=== PATIENT | female | born 2005 | race Two or more races ===

== ENCOUNTER 2025-06-09 12:05 | Observation (INO) | payer MEDICAID ==
[~2025-06-09] VITALS: Ht 152.4 cm; Wt 89.8 kg
--- NOTE | 2025-06-09 12:50 | DVH ---
BIOPHYSICAL PROFILE HISTORY: SGA TECHNIQUE: Multiple transabdominal real-time grayscale sonographic images through the gravid uterus of the fetus with duplex Doppler color flow and M-mode spectral analysis FINDINGS: BIOPHYSICAL PROFILE: breathing score: 2/2 movement score: 2/2 tone score: 2/2 Quantitative BREANA score: 2/2 (BREANA: 13.1 Cm.) Total score: 8/8 The cervix closed Single live fetus in cephalic presentation. heart rate 139 beats per minute. Posterior fundal placenta without previa or abruption IMPRESSION: 1. Biophysical profile score: 8/8
[2025-06-09] MEDS ORDERED: PREN-96 PO (13:05)
--- NOTE | 2025-06-10 15:30 | DVHDS2 ---
Physician Discharge Progress N Final Diagnosis: SGA 37WKS Operations or Procedures: Operations or Procedures NST REACTIVE REVIWED,SONO Condition on Discharge: Good Disposition: Home Discharge Instructions: Diet: Regular Activity: No Restrictions, As Tolerated Medications: NA Follow Up Care: Specialist: 1W Discharge Statement: "Patient was advised to return to the ER or call 911 if any headaches, dizziness, shortness of breath, chest pain, abdominal pain, bleeding, fevers, or worsening of medical condition. Patient was counseled about treatment plan, medications, possible side effects, patientverbalized understanding. All questions were answered to the best of my ability. This discharge took greater then 30 minutes in planning, reviewing documentat ion, counseling the patient, and discussing with other team members." Visit Coding OBGYN Date of Service: Jun 09, 2025 Billing Provider: ROSE RIVAS DO CONTROL AND RECOVERY SPECIAL TACTICS Common Visit Codes: [id number] OBS CARE (HIGH) CONTROL AND RECOVERY SPECIAL TACTICS Procedure Codes: 06625-09- NON-STRESS TEST ROSE RIVAS DO Jun 10, 2025 15:30
== END 2025-06-09 13:34 | disposition home or self-care (01) ==
LOC: LDRP 12:05
PROVIDERS: ADMIT Obstetrics & Gynecology; ATTEND Obstetrics & Gynecology
DX: O36.5930 Maternal care for other known or suspected poor fetal growth, third trimester, not applicable or unspecified (principal); Z3A.37 37 weeks gestation of pregnancy; Z79.899 Other long term (current) drug therapy; Z98.890 Other specified postprocedural states
CPT/HCPCS: 59025; 76819; 81002; 94760; G0378

== ENCOUNTER 2025-06-10 01:27 | Observation (INO) | payer MEDICAID ==
[~2025-06-10] VITALS: Ht 152.4 cm; Wt 89.8 kg
[~2025-06-10 01:27] MED LIST: PREN-96 PO
[2025-06-10] MEDS ORDERED: LACTATED RINGER'S 1,000 ML IV ONE (02:30)
[2025-06-10 03:54] LABS: Vaginal Trichomonas Not Present
[2025-06-10 03:55] LABS: Vaginal Bacteria Moderate; Vaginal Clue Cells Many; Vaginal Epithelial Cells Moderate
--- NOTE | 2025-06-10 03:58 | DVHDS2 ---
Physician Discharge Progress N Final Diagnosis: Not in labor Secondary Diagnosis: No care Operations or Procedures: Operations or Procedures SUBJECTIVE Keyla Beltran is a 20 yo with limited care and uncertain dating presenting for vaginal spotting. Patient states that at 0000, she went to the bathroom and had a couple spots of blood when she wiped. 30 minutes later when she went to the bathroom again, she had a couple more spots when she wiped. No blood in underwear. Denies feeling contractions, denies leaking fluid, and endorses positive movement. Denies headache, blurry vision, or epigastric pain PNC: LMP: 09/03/24 (EDC: 06/10/25) [facility] period and they "sent her away" stating it was too soon. She returned 4 weeks later and they conducted an US, citing her EDC as 07/04/25. She then began seeking care in [place], [place] and got an US done "a couple weeks later" that showed an EDC of 06/27/25 and current GA of 13 weeks. At the end of May, she began receiving care with Dr Byrne and V[facility] and got a "34 week US" which placed her EDC at 07/12/25 Review of Systems: Neuro: No complaints Heart: No complaints Lungs: No complaints GI: No complaints : Denies dysuria, abnormal vaginal discharge, itching, pain, or change in odor. States she had episodes of spotting as described above Skin: No complaints Extremities: No complaints OBJECTIVE VSS FHR: Baseline: 135 Variability: Moderate Accelerations: Present Decelerations: Absent Category: 1 UCs: occasional. Patient not feeling them and palpating mild Neuro: A&O x4. No apparent distress. Affect appropriate Heart: Regular rate and rhythm Lungs: Clear bilaterally GI: Gravid. No tenderness : SSE discussed and performed with consent. Cervix closed. No bleeding noted in vagina or at os. Copious amounts of white, frothy discharge noted. Skin: Dry and intact. No rashes or lesions Extremities: Cap refill WNL. Mild edema bilat ankles. ASSESSMENT 20 yo with IUP likely at 36w4d (based on early US with EDC 07/04/25) Not in labor Category 1 Tracing Limited care PLAN -PO hydrated patient -Continue with appointments as scheduled. NST on Wednesday 06/13 and appt with Jazminnd on 06/15 -Vaginitis collected. Will discuss results with patient on 06/13 or sooner if indicated -GC/CT in urine sent to lab. Will discuss results with patient on 06/13 or sooner if indicated -Discussed labor precautions and kick counts. Answered all patient questions and concerns. Patient verbalizes understanding. Condition on Discharge: Good Disposition: Home Discharge Instructions: Diet: Regular Activity: No Restrictions, As Tolerated Medications: No change at this time. See med list Follow Up Care: Specialist: Follow-up as previously scheduled on Wednesday 06/13 Discharge Statement: "Patient was advised to return to the ER or call 911 if any headaches, dizziness, shortness of breath, chest pain, abdominal pain, bleeding, fevers, or worsening of medical condition. Patient was counseled about treatment plan, medications, possible side effects, patientverbalized understanding. All questions were answered to the best of my ability. This discharge took greater then 30 minutes in planning, reviewing documentation, counseling the patient, and discussing with other team members." Visit Coding OBGYN Date of Service: Jun 10, 2025 Billing Provider: KAYLIN CARDENAS CNM WELFARE VISITOR Common Visit Codes: [id number] INP/OBS CARE (HIGH) WELFARE VISITOR Procedure Codes: 40534-00- NON-STRESS TEST KAYLIN CARDENAS CNM Jun 10, 2025 03:58
[2025-06-12 05:07] LABS: Chlamydia Trachomatis, NAA Negative (Negative); Neisseria gonorrhoeae, NAA Negative (Negative)
== END 2025-06-10 03:49 | disposition home or self-care (01) ==
LOC: LDRP 01:27
PROVIDERS: ADMIT Obstetrics & Gynecology; ATTEND Obstetrics & Gynecology
DX: O09.33 Supervision of pregnancy with insufficient antenatal care, third trimester (principal); O26.853 Spotting complicating pregnancy, third trimester; Z3A.36 36 weeks gestation of pregnancy; Z79.899 Other long term (current) drug therapy
CPT/HCPCS: 59025; 81002; 87210; 87491; 87591; 94760; G0378

== ENCOUNTER 2025-06-13 07:45 | Observation (INO) | payer MEDICAID ==
--- NOTE | 2025-06-13 13:27 | DVH ---
BIOPHYSICAL PROFILE HISTORY: SGA TECHNIQUE: Multiple transabdominal real-time grayscale sonographic images through the gravid uterus of the fetus with duplex Doppler color flow and M-mode spectral analysis FINDINGS: BIOPHYSICAL PROFILE: breathing score: 2/2 movement score: 2/2 tone score: 2/2 Quantitative BREANA score: 2/2 (BREANA: 12 Cm.) Total score: 8/8 The cervix close Single live fetus in cephalic presentation. heart rate 134 beats per minute. Posterior fundal placenta without previa or abruption IMPRESSION: 1. Biophysical profile score: 8/8
[2025-06-13] MEDS ORDERED: METR-344 PO (13:42)
--- NOTE | 2025-06-13 15:12 | DVHDS2 ---
Physician Discharge Progress N Final Diagnosis: SGA ,LATE ENTRY 37WKS Operations or Procedures: Operations or Procedures NST REACTIVE REVIWED,SONO Condition on Discharge: Good Disposition: Home Discharge Instructions: Diet: Regular Activity: No Restrictions, As Tolerated Medications: NA Follow Up Care: Specialist: 1W Discharge Statement: "Patient was advised to return to the ER or call 911 if any headaches, dizziness, shortness of breath, chest pain, abdominal pain, bleeding, fevers, or worsening of medical condition. Patient was counseled about treatment plan, medications, possible side effects, patientverbalized understanding. All questions were answered to the best of my ability. This discharge took greater then 30 minutes in planning, reviewing documentation, counseling the patient, and discussing with other team members." Visit Coding OBGYN Date of Service: Jun 13, 2025 Billing Provider: ROSE RIVAS DO MANAGER OF ENVIRONMENTAL SERVICES Common Visit Codes: [id number] INP/OBS CARE (HIGH) MANAGER OF ENVIRONMENTAL SERVICES Procedure Codes: 34549-26- NON-STRESS TEST ROSE RIVAS DO Jun 13, 2025 15:12
== END 2025-06-13 13:52 | disposition home or self-care (01) ==
LOC: LDRP 12:13 → UNDOADMOB 12:13 → LDRP 12:20 → UNDODISOB 13:52
PROVIDERS: ADMIT Obstetrics & Gynecology; ATTEND Obstetrics & Gynecology
DX: O36.5930 Maternal care for other known or suspected poor fetal growth, third trimester, not applicable or unspecified (principal); Z3A.37 37 weeks gestation of pregnancy; Z98.890 Other specified postprocedural states; Z79.899 Other long term (current) drug therapy
CPT/HCPCS: 59025; 76819; 81002; 94760; G0378

== ENCOUNTER 2025-06-15 06:38 | Observation (INO) | payer MEDICAID ==
[~2025-06-15 06:38] MED LIST changes: +METR-344 PO
--- NOTE | 2025-06-20 13:46 | DVH ---
BIOPHYSICAL PROFILE HISTORY: SGA TECHNIQUE: Multiple transabdominal real-time grayscale sonographic images through the gravid uterus of the fetus with duplex Doppler color flow and M-mode spectral analysis FINDINGS: BIOPHYSICAL PROFILE: breathing score: 2 movement score: 2 tone score: 2 Quantitative BREANA score: 2 (BREANA: 14.3 Cm.) Total score: 8 The cervix was not seen Single live fetus in cephalic presentation. heart rate 136 beats per minute. Grade II posterior fundal placenta without previa or abruption IMPRESSION: Biophysical profile score: 8/8
--- NOTE | 2025-06-20 16:22 | DVHDS2 ---
Physician Discharge Progress N Final Diagnosis: Suspected SGA (poor growth) Operations or Procedures: Operations or Procedures NST/BPP BREANA Commentary: Commentary PATIENT: ANGELA PATRICIO ACCT: [id number] UNIT: [id number] : 2005 LOC: [facility] ROOM / BED: TRIAGE1 / A AGE / SEX: 20 / F ADM STATUS: ADM IN SERVICE 1304 ORDERING PHYSICIAN: PATY BUSH DO PROCEDURE(s): BPP - BIOPHYSICAL PROFILE REASON: SGA ORDER NUMBER(s): [id number], ACCESSION NUMBER(s): [id number] BIOPHYSICAL PROFILE HISTORY: SGA TECHNIQUE: Multiple transabdominal real-time grayscale sonographic images through the gravid uterus of the fetus with duplex Doppler color flow and M-mode spectral analysis FINDINGS: BIOPHYSICAL PROFILE: breathing score: 2 movement score: 2 tone score: 2 Quantitative BREANA score: 2 (BREANA: 14.3 Cm.) Total score: 8 The cervix was not seen Single live fetus in cephalic presentation. heart rate 136 beats per minute. Grade II posterior fundal placenta without previa or abruption IMPRESSION: Biophysical profile score: 8/8 ATED BY: CLAUDIO LOWE MD DICTATED DATE/TIME: 06/20/25 1344 Condition on Discharge: Stable Disposition: Home Discharge Instructions: Diet: Regular Activity: No Restrictions, As Tolerated Follow Up/Referral: as scheduled per Dr yBrne Medications: NA Follow Up Care: Discharge Statement: "Patient was advised to return to the ER or call 911 if any headaches, dizziness, shortness of breath, chest pain, abdominal pain, bleeding, fevers, or worsening of medical condition. Patient was counseled about treatment plan, medications, possible side effects, patientverbalized understanding. All questions were answered to the best of my ability. This discharge took greater then 30 minutes in planning, reviewing documentation, counseling the patient, and discussing with other team members." Visit Coding OBGYN Date of Service: Jun 20, 2025 Billing Provider: PATY BUSH DO REMELTER Common Visit Codes: 77436-ARJ/OBS SAME DATE (HIGH) PATY BUSH DO Jun 20, 2025 16:22
== END 2025-06-20 14:05 | disposition home or self-care (01) ==
LOC: LDRP 06-20 12:47
PROVIDERS: ADMIT Obstetrics & Gynecology; ATTEND Obstetrics & Gynecology
DX: O36.5930 Maternal care for other known or suspected poor fetal growth, third trimester, not applicable or unspecified (principal); Z3A.39 39 weeks gestation of pregnancy; Z79.899 Other long term (current) drug therapy
CPT/HCPCS: 59025; 76819; 81002; G0378

== ENCOUNTER 2025-06-22 22:27 | Observation (INO) | payer MEDICAID ==
[~2025-06-22] VITALS: Ht 152.4 cm; Wt 91.6 kg
--- NOTE | 2025-06-23 00:13 | DVHDS2 ---
Physician Discharge Progress N Final Diagnosis: well being established spotting, resolved Operations or Procedures: Operations or Procedures S: 20yo IUP@39.2wks (final MICHELLE 06/27/25 based on 13 wk sono per pt). Pt c/o spotting when she wipes. Denies sexual intercourse in the last 48 hours. +FM, denies UCs/LOF/MOSHER/vision changes/RUQ pain. Late entry to PNC with Dr. Byrne. O: VSS NST reactive prior to D/C BPP 06/10 SVE: FT/TH/HI, no VB noted by CNM A: 20yo IUP@39.2wks well being established spotting, resolved D: D/C home FKC/PreE/labor precautions reviewed Condition on Discharge: Stable Disposition: Home Discharge Instructions: Diet: Regular Activity: No Restrictions, As Tolerated Medications: see med list Follow Up Care: Specialist: f/u as scheduled for IOL on 06/26/25 Discharge Statement: "Patient was advised to return to the ER or call 911 if any headaches, dizziness, shortness of breath, chest pain, abdominal pain, bleeding, fevers, or worsening of medical condition. Patient was counseled about treatment plan, medications, possible side effects, patientverbalized understanding. All questions were answered to the best of my ability. This discharge took greater then 30 minutes in planning, reviewing documentation, counseling the patient, and discussing with other team members." Visit Coding OBGYN Date of Service: Jun 23, 2025 Billing Provider: AB GAMING CNM IMPORT CUSTOMS CLEARING AGENT Common Visit Codes: [id number] OBS CARE (HIGH) IMPORT CUSTOMS CLEARING AGENT Procedure Codes: 46591-36- NON-STRESS TEST AB GAMING CNM Jun 23, 2025 00:13
--- NOTE | 2025-06-23 01:17 | DVH ---
BIOPHYSICAL PROFILE HISTORY: Nonreactive NST TECHNIQUE: Multiple transabdominal real-time grayscale sonographic images through the gravid uterus of the fetus with duplex Doppler color flow and M-mode spectral analysis FINDINGS: BIOPHYSICAL PROFILE: 8/8 heart rate of 159 beats per minute. position is vertex. BREANA of 11.8 cm. Placenta is po sterior position. No placenta previa or abruptio is noted. Cervical length is 4.1 cm. IMPRESSION: 1. Biophysical profile score: 8/8
[2025-06-28] MEDS ORDERED: FERR30CA PO (19:41)
[2025-06-28] MEDS ORDERED: DOCU-265 PO (19:41)
[2025-06-28] MEDS ORDERED: PREN-96 PO (19:41)
[2025-06-28] MEDS ORDERED: IBU600T PO (19:41)
== END 2025-06-23 01:01 | disposition home or self-care (01) ==
LOC: LDRP 22:27
PROVIDERS: ADMIT Obstetrics & Gynecology; ATTEND Obstetrics & Gynecology
DX: O26.853 Spotting complicating pregnancy, third trimester (principal); Z3A.39 39 weeks gestation of pregnancy; Z79.899 Other long term (current) drug therapy; Z98.890 Other specified postprocedural states
CPT/HCPCS: 59025; 76819; 81002; 94760; G0378

== ENCOUNTER 2025-06-24 13:40 | Observation (INO) | payer MEDICAID ==
--- NOTE | 2025-06-25 08:46 | DVHDS2 ---
Physician Discharge Progress N Final Diagnosis: abd paoin 39wks Operations or Procedures: Operations or Procedures nst reactive reviwed,sono Condition on Discharge: Good Disposition: Home Discharge Instructions: Diet: Regular Activity: Bed rest Medications: na Follow Up Care: Specialist: 2d Discharge Statement: "Patient was advised to return to the ER or call 911 if any headaches, dizziness, shortness of breath, chest pain, abdominal pain, bleeding, fevers, or worsening of medical condition. Patient was counseled about treatment plan, medications, possible side effects, patientverbalized understanding. All questions were answered to the best of my ability. This discharge took greater then 30 minutes in planning, reviewing documentation, counseling the patient, and discussing with other team members." Visit Coding OBGYN Date of Service: Jun 24, 2025 Billing Provider: ROSE RIVAS DO BIN TRIPPER OPERATOR Common Visit Codes: [id number] OBS CARE (HIGH) BIN TRIPPER OPERATOR Procedure Codes: 57192-51- NON-STRESS TEST ROSE RIVAS DO Jun 25, 2025 08:46
== END 2025-06-24 15:48 | disposition home or self-care (01) ==
LOC: LDRP 13:40
PROVIDERS: ADMIT Obstetrics & Gynecology; ATTEND Obstetrics & Gynecology
DX: O26.893 Other specified pregnancy related conditions, third trimester (principal); R10.9 Unspecified abdominal pain; Z3A.39 39 weeks gestation of pregnancy

== ENCOUNTER 2025-06-26 14:06 | Inpatient (IN) | payer MEDICAID ==
[~2025-06-26] VITALS: Ht 152.4 cm; Wt 92.1 kg
[2025-06-26] MEDS ORDERED: BUTORPHANOL TARTRATE 2 MG/1 ML VIAL IV PRN ×2 (14:30)
[2025-06-26] MEDS ORDERED: LIDOCAINE 2%HCL (LOCAL ANESTH.) INJ 20ML MDV IJ PRN (14:30)
[2025-06-26 15:20] LABS: Fern Testing Positive
[2025-06-26 15:26] LABS: COVID19 ANTIGEN SOFIA FIA POSITIVE (NEGATIVE)
[2025-06-26 15:32] LABS: Hemoglobin 10.7 g/dL (12.2-16.2)
[2025-06-26 15:34] LABS: Hematocrit 31.5 % (36.0-46.0); Mean Corpuscular Hemoglobin 25.0 pg (28.0-32.0); Mean Corpuscular Volume 73.4 fL (80.0-100.0); Nucleated Red Blood Cells % 0.1 %
[2025-06-26 15:47] LABS: Alanine Aminotransferase 10 U/L (7-40); Albumin 3.8 g/dL (3.2-4.8); Alkaline Phosphatase 116 U/L (46-116); Anion Gap 11 (5-15); Carbon Dioxide 21 mmol/L (20-31); Chloride 107 mmol/L (98-107); Glucose 106 mg/dL (74-106); Sodium 139 mmol/L (136-145); Total Protein 6.4 g/dL (5.7-8.2)
[2025-06-26 15:52] LABS: BUN/Creatinine Ratio 7.9 (10.0-20.0); Bilirubin, Total 0.2 mg/dL (0.2-1.0); Blood Urea Nitrogen < 5 mg/dL (9-23); Calcium 8.6 mg/dL (8.7-10.4); Potassium 3.4 mmol/L (3.5-5.1)
[2025-06-26 15:57] LABS: Urine Protein, UAD Negative (Negative)
[2025-06-26 15:58] LABS: INR 0.9 (0.9-1.15); Partial Thromboplastin Time 29.8 SEC (24.5-34.5); Prothrombin Time 9.6 sec (9.3-11.8)
[2025-06-26 16:03] LABS: Amphetamine Screen, Urine Neg (NEGATIVE); Barbiturate Scree,Urine Neg (NEGATIVE); Benzodiazephine Screen, Urine Neg (NEGATIVE); Cannabinoid Screen, Urine Neg (NEGATIVE); Cocaine Screen, Urine Neg (NEGATIVE); Opiate Scree,Urine Neg (NEGATIVE); Phencyclidine Screen, Urine Neg (NEGATIVE)
[2025-06-26] MEDS: DERMOPLAST 60ML BOTTLE TOP PRN (16:19)
[2025-06-26] MEDS: CLINDAMYCIN 600MG IV 50 ML IV SCH (16:19)
[2025-06-26] MEDS: PHISODERM TOP SOLN 240ML BTL TOP PRN (16:19)
[2025-06-26] MEDS: LACTATED RINGER'S 1,000 ML IV SCH (16:22)
[2025-06-26] MEDS: WITCH HAZEL-GLYCERIN PAD TOP PRN (16:23)
--- NOTE | 2025-06-26 16:25 | DVH ---
LIMITED OB ULTRASOUND > 14 WKS: HISTORY: Leaking of fluid TECHNIQUE: Multiple real-time grayscale images of the gravid uterus with duplex Doppler color flow an d M-mode spectral analysis. COMPARISON: US BIOPHYSICAL PROFILE on DOS: 06/22/25, US BIOPHYSICAL PROFILE on DOS: 06/20/25, US BIOPHY SICAL PROFILE on DOS: 06/13/25 FINDINGS: heart rate 142 beats per minute. BREANA 5.9 cm. Previous amniotic fluid index on 06/22/2025 measured 11.8 cm. BREANA on 06/20/2025 measured 14.3 cm. Cervix is not well-visualized. Cephalic presentation Grade 3 placenta without previa or abruption, in fundal position. IMPRESSION: Single living intrauterine with amniotic fluid index of 5.9 cm as described above.
--- NOTE | 2025-06-26 16:26 | DVHHP ---
ADMIT DATE: 06/26/2025 CHIEF COMPLAINT: Here for induction of labor secondary to IUGR. HISTORY OF PRESENT ILLNESS: The patient is a 20-year-old 1 para 0 with EDC 06/27/2025, with estimated gestational age of 39+ weeks, admitted for induction of labor for IUGR. The patient states she believes she might have COVID. She has some upper respiratory tract infection signs and symptoms. Denies having any vaginal bleeding. The patient has been under Dr. Barrios's care and was diagnosed with evolving IUGR. PAST MEDICAL HISTORY: None. PAST SURGICAL HISTORY: None. SOCIAL HISTORY: None. FAMILY HISTORY: None. OBSTETRIC AND GYNECOLOGIC HISTORY: GBS negative. REVIEW OF SYSTEMS: Consistent with HPI. PHYSICAL EXAMINATION: VITAL SIGNS: Stable, afebrile. HEENT: Within normal limits. CARDIOVASCULAR: Regular rate and rhythm. LUNGS: Clear to auscultation. BREASTS: No masses abdomen. ABDOMEN: Gravid, positive heart. PELVIC: Fingertip, -2, thick. EXTREMITIES: No clubbing, cyanosis, or edema. IMPRESSION: * Intrauterine at 39+ weeks, induction of labor for evolving IUGR. * Rule out COVID. PLAN: COVID testing. Informed consent obtained. We will proceed with Cytotec. Risks, complications, and indications of induction discussed with the patient. The patient wishes to proceed with induction of labor. Velvet Byrne DO MZ/EKT TID: [id number] RECEIPT: [id number]
--- NOTE | 2025-06-26 17:05 | DVHPN2 ---
Chief Complaints Patient reports: No new complaints Nursing reports: No new complaints Objective Medications Current Medications Medications (Trade) Dose Ordered Sig/Rosaline Route PRN Reason Start Time Stop Time Status Last Admin Benzocaine (Dermoplast) 1 applic PRN PRN TOP PERINEAL AREA DISCOMFORT 06/26/25 14:30 06/26/25 16:19 Butorphanol Tartrate (Stadol Injection) 1 mg Q4HPRN PRN IV MODERATE PAIN (4-6 PAIN SCALE) 06/26/25 14:30 Butorphanol Tartrate (Stadol Injection) 2 mg Q4HPRN PRN IV SEVERE PAIN (7-10 PAIN SCALE) 06/26/25 14:30 Clindamycin Phosphate 50 ml @ 50 mls/hr Q8HR IV 06/26/25 16:00 06/26/25 16:19 Lactated Ringer's 1,000 ml @ 125 mls/hr Q8H IV 06/26/25 14:30 06/26/25 16:22 Lidocaine HCl (Xylocaine) 20 ml ONCE PRN IJ PERINEAL AREA DISCOMFORT 06/26/25 14:30 Misoprostol (Cytotec) 50 mcg Q4HPRN PRN PO CERVICAL RIPENING 06/26/25 15:45 06/26/25 16:19 Sodium Lauryl Sulfate (Phisoderm) 240 ml PRN PRN TOP PERINEAL AREA DISCOMFORT 06/26/25 14:30 06/26/25 16:19 Witch Natalie (Tucks) 1 pad PRN PRN TOP PERINEAL AREA DISCOMFORT 06/26/25 14:30 06/26/25 16:23 Others ve-1cm /50/-2 Studies Laboratory Tests 06/26/25 14:50 Test 06/26/25 14:50 Range/Units Serum Glucose 106 74-106 mg/dL Ass/Plan Assessment iup at 39wks with srom on admission oligo covid positive evolving iugr Plan rec one cytotec started on ancef Visit Coding OBGYN Date of Service: Jun 26, 2025 Billing Provider: ROSE RIVAS DO CAFETERIA MONITOR Common Visit Codes: [id number] INP/OBS CARE(HIGH) CAFETERIA MONITOR Procedure Codes: 35464-32- NON-STRESS TEST ROSE RIVAS DO Jun 26, 2025 17:05
--- NOTE | 2025-06-26 17:06 | DVHPN2 ---
Visit Coding OBGYN Date of Service: Jun 26, 2025 Billing Provider: ROSE RIVAS DO BLACK LEATHER TRIMMER Common Visit Codes: [id number] INP/OBS CARE (HIGH) BLACK LEATHER TRIMMER Procedure Codes: 81650-79- NON-STRESS TEST ROSE RIVAS DO Jun 26, 2025 17:06
--- NOTE | 2025-06-26 23:09 | DVHPN2 ---
GAIL Labor Progress Note Date and Time Seen Date Seen: Jun 26, 2025 Time Seen: 20:50 Subjective Patient reports: No new complaints Objective Vital Signs Afebrile, VSS Monitoring Method Monitoring Method: External Heart Rate Heart Rate Baseline: 135 Heart Rate Variability: Moderate Presence of FHR Accelerations: Yes Presence of FHR Decelerations: No Changes in Trends of Patterns: No Are all 5 Components of the FH: Yes Contractions Contractions Frequency: Other (1-2/10min) Duration of Contraction: 70 Contractions Intensity: Mild Contractions Resting Tone: Relaxed Membranes Membranes: Ruptured Amniotic Fluid Color: Clear Vaginal Exam Vag Exam Deferred: No Vaginal Exam Dilation: 1 Vaginal Exam Effacement: 50 Vaginal Exam Station: -3 Vaginal Exam Presentation: VTX Vaginal Exam Show: None Medications Medications - Pitocin: No Medication - Epidural: No Medication - Other Misoprostol Lab Results Lab Results Current Medications Medications (Trade) Dose Ordered Sig/Rosaline Start Time Stop Time Status Last Admin Dose Admin Lactated Ringer's 1,000 ml @ 125 mls/hr Q8H 06/26/25 14:30 06/27/25 02:41 125 MLS/HR Witch Natalie (Tucks) 1 pad PRN PRN 06/26/25 14:30 06/26/25 16:23 1 PAD Sodium Lauryl Sulfate (Phisoderm) 240 ml PRN PRN 06/26/25 14:30 06/26/25 16:19 240 ML Benzocaine (Dermoplast) 1 applic PRN PRN 06/26/25 14:30 06/26/25 16:19 1 APPLIC Butorphanol Tartrate (Stadol Injection) 1 mg Q4HPRN PRN 06/26/25 14:30 Butorphanol Tartrate (Stadol Injection) 2 mg Q4HPRN PRN 06/26/25 14:30 Lidocaine HCl (Xylocaine) 20 ml ONCE PRN 06/26/25 14:30 Oxytocin 500 ml @ 999 mls/hr Q31M ONCE 06/26/25 14:30 06/26/25 15:52 DC Oxytocin 500 ml @ 125 mls/hr Q4H ONCE 06/26/25 15:00 06/26/25 18:59 DC Misoprostol (Cytotec) 50 mcg Q4HPRN PRN 06/26/25 15:45 06/27/25 02:41 50 MCG Clindamycin Phosphate 50 ml @ 50 mls/hr Q8HR 06/26/25 16:00 06/27/25 01:01 50 MLS/HR Laboratory Tests Test 06/26/25 15:00 06/26/25 14:50 06/26/25 14:45 06/26/25 14:24 Range/Units Urine Color Light-yellow Yellow Urine Clarity Turbid H Clear Urine pH 6.5 5.0-9.0 Urine Specific Marion 1.008 1.001-1.035 Urine Protein Negative Negative Urine Ketones Negative Negative Urine Blood Negative Negative /uL Urine Nitrite Negative Negative Urine Bilirubin Negative Negative Urine Urobilinogen Normal Negative mg/dL Urine Leukocyte Esterase Negative Negative /uL Urine RBC 1 0 - 4 /hpf Urine Microscopic WBC 1 0-5 /HPF Urine Squamous Epithelial Cells Mod <5 /hpf Urine Bacteria Few H None Seen /hpf Urine Glucose Normal Normal mg/dL White Blood Count 6.0 4.4-10.8 10^3/uL Red Blood Count 4.29 4.0-5.20 10^6/uL Hemoglobin 10.7 L 12.2-16.2 g/dL Hematocrit 31.5 L 36.0-46.0 % Mean Corpuscular Volume 73.4 L 80.0-100.0 fL Mean Corpuscular Hemoglobin 25.0 L 28.0-32.0 pg Mean Corpuscular Hemoglobin Concent 34.1 32.0-36.0 g/dL Red Cell Distribution Width 16.5 H 11.8-14.3 % Platelet Count 222 140-450 10^3/uL Mean Platelet Volume 9.1 6.9-10.8 fL Neutrophils (%) (Auto) 63.8 37.0-80.0 % Lymphocytes (%) (Auto) 23.8 10.0-50.0 % Monocytes (%) (Auto) 10.1 0.0-12.0 % Eosinophils (%) (Auto) 1.9 0.0-7.0 % Basophils (%) (Auto) 0.4 0.0-2.0 % Neutrophils # (Auto) 3.8 1.6-8.6 10 ^3/uL Lymphocytes # (Auto) 1.4 0.4-5.4 10 ^3/uL Monocytes # (Auto) 0.6 0-1.3 10 ^3/uL Eosinophils # (Auto) 0.1 0-0.8 10 ^3/uL Basophils # (Auto) 0 0-0.2 10 ^3/uL Nucleated Red Blood Cells 0.1 % Prothrombin Time 9.6 9.3-11.8 sec Prothrombin Time INR 0.90 0.9-1.15 Activated Partial Thromboplast Time 29.8 24.5-34.5 SEC Sodium Level 139 136-145 mmol/L Potassium Level 3.4 L 3.5-5.1 mmol/L Chloride Level 107 98-107 mmol/L Carbon Dioxide Level 21 20-31 mmol/L Anion Gap 11 5-15 Blood Urea Nitrogen < 5 L 9-23 mg/dL Creatinine 0.63 0.550-1.02 mg/dL Glomerular Filtration Rate Calc 129 >90 mL/min BUN/Creatinine Ratio 7.9 L 10.0-20.0 Serum Glucose 106 74-106 mg/dL Calcium Level 8.6 L 8.7-10.4 mg/dL Total Bilirubin 0.2 0.2-1.0 mg/dL Aspartate Amino Transferase (AST) 17 13-40 U/L Alanine Aminotransferase (ALT) 10 7-40 U/L Alkaline Phosphatase 116 46-116 U/L Total Protein 6.4 5.7-8.2 g/dL Albumin 3.8 3.2-4.8 g/dL Treponema pallidum Antibody Non-reactive Negative Hepatitis B Surface Antigen Negative Negative Hepatitis C Antibody Negative Negative HIV (1&2) Antibody Negative Negative Rubella Antibody Pending Amniotic Fluid Ferning Test Positive Placental Bilfm-2-Bmoktatbiktqf Positive SARS-CoV-2 Antigen (Rapid) Positive NEGATIVE Test 06/26/25 14:19 Range/Units Urine Opiates Screen Neg NEGATIVE Urine Fentanyl Screen Neg NEGATIVE Urine Barbiturates Screen Neg NEGATIVE Urine Phencyclidine Screen Neg NEGATIVE Urine Amphetamines Screen Neg NEGATIVE Urine Benzodiazepines Screen Neg NEGATIVE Urine Cocaine Screen Neg NEGATIVE Urine Cannabinoids Screen Neg NEGATIVE Assessment Assessment IUP at 39w 6d SROM Covid Infection IOL Category 1 FHR Tracing Plan Plan Continue current management plan - Misoprostol & EFM per protocol - Intrauterine resuscitation PRN - Encourage and facilitate ambulation & frequent position change to facilitate labor & descent - Labor analgesia PRN - Anticipate Plan discussed with: Patient, Spouse Visit Coding OBGYN Date of Service: Jun 26, 2025 Billing Provider: SRI RANGEL CNM LIQUID CHLORINE OPERATOR Common Visit Codes: [id number] INP/OBS CARE(HIGH) LIQUID CHLORINE OPERATOR Procedure Codes: 23224-48- NON-STRESS TEST SRI RANGEL CNM Jun 26, 2025 23:09
--- NOTE | 2025-06-27 06:29 | DVHPN2 ---
[facility] Labor Progress Note Date and Time Seen Date Seen: Jun 27, 2025 Time Seen: 01:00 Subjective Patient reports: No new complaints Objective Vital Signs VSS Monitoring Method Monitoring Method: External Heart Rate Heart Rate Baseline: 125 Heart Rate Variability: Moderate Presence of FHR Accelerations: Yes Presence of FHR Decelerations: No Changes in Trends of Patterns: No Are all 5 Components of the FH: Yes Contractions Contractions Frequency: Other (Q2-4min) Duration of Contraction: 70 Contractions Intensity: Mild Contractions Resting Tone: Relaxed Membranes Membranes: Ruptured Amniotic Fluid Color: Clear Vaginal Exam Vag Exam Deferred: Yes Medications Medications - Pitocin: No Medication - Epidural: No Medication - Other Misoprostol Lab Results Lab Results Current Medications Medications (Trade) Dose Ordered Sig/Rosaline Start Time Stop Time Status Last Admin Dose Admin Lactated Ringer's 1,000 ml @ 125 mls/hr Q8H 06/26/25 14:30 06/27/25 02:41 125 MLS/HR Witannmarie Natalie (Tucks) 1 pad PRN PRN 06/26/25 14:30 06/26/25 16:23 1 PAD Sodium Lauryl Sulfate (Phisoderm) 240 ml PRN PRN 06/26/25 14:30 06/26/25 16:19 240 ML Benzocaine (Dermoplast) 1 applic PRN PRN 06/26/25 14:30 06/26/25 16:19 1 APPLIC Butorphanol Tartrate (Stadol Injection) 1 mg Q4HPRN PRN 06/26/25 14:30 Butorphanol Tartrate (Stadol Injection) 2 mg Q4HPRN PRN 06/26/25 14:30 Lidocaine HCl (Xylocaine) 20 ml ONCE PRN 06/26/25 14:30 Oxytocin 500 ml @ 999 mls/hr Q31M ONCE 06/26/25 14:30 06/26/25 15:52 DC Oxytocin 500 ml @ 125 mls/hr Q4H ONCE 06/26/25 15:00 06/26/25 18:59 DC Misoprostol (Cytotec) 50 mcg Q4HPRN PRN 06/26/25 15:45 06/27/25 02:41 50 MCG Clindamycin Phosphate 50 ml @ 50 mls/hr Q8HR 06/26/25 16:00 06/27/25 01:01 50 MLS/HR Laboratory Tests Test 06/26/25 15:00 06/26/25 14:50 06/26/25 14:45 06/26/25 14:24 Range/Units Urine Color Light-yellow Yellow Urine Clarity Turbid H Clear Urine pH 6.5 5.0-9.0 Urine Specific [place] 1.008 1.001-1.035 Urine Protein Negative Negative Urine Ketones Negative Negative Urine Blood Negative Negative /uL Urine Nitrite Negative Negative Urine Bilirubin Negative Negative Urine Urobilinogen Normal Negative mg/dL Urine Leukocyte Esterase Negative Negative /uL Urine RBC 1 0 - 4 /hpf Urine Microscopic WBC 1 0-5 /HPF Urine Squamous Epithelial Cells Mod <5 /hpf Urine Bacteria Few H None Seen /hpf Urine Glucose Normal Normal mg/dL White Blood Count 6.0 4.4-10.8 10^3/uL Red Blood Count 4.29 4.0-5.20 10^6/uL Hemoglobin 10.7 L 12.2-16.2 g/dL Hematocrit 31.5 L 36.0-46.0 % Mean Corpuscular Volume 73.4 L 80.0-100.0 fL Mean Corpuscular Hemoglobin 25.0 L 28.0-32.0 pg Mean Corpuscular Hemoglobin Concent 34.1 32.0-36.0 g/dL Red Cell Distribution Width 16.5 H 11.8-14.3 % Platelet Count 222 140-450 10^3/uL Mean Platelet Volume 9.1 6.9-10.8 fL Neutrophils (%) (Auto) 63.8 37.0-80.0 % Lymphocytes (%) (Auto) 23.8 10.0-50.0 % Monocytes (%) (Auto) 10.1 0.0-12.0 % Eosinophils (%) (Auto) 1.9 0.0-7.0 % Basophils (%) (Auto) 0.4 0.0-2.0 % Neutrophils # (Auto) 3.8 1.6-8.6 10 ^3/uL Lymphocytes # (Auto) 1.4 0.4-5.4 10 ^3/uL Monocytes # (Auto) 0.6 0-1.3 10 ^3/uL Eosinophils # (Auto) 0.1 0-0.8 10 ^3/uL Basophils # (Auto) 0 0-0.2 10 ^3/uL Nucleated Red Blood Cells 0.1 % Prothrombin Time 9.6 9.3-11.8 sec Prothrombin Time INR 0.90 0.9-1.15 Activated Partial Thromboplast Time 29.8 24.5-34.5 SEC Sodium Level 139 136-145 mmol/L Potassium Level 3.4 L 3.5-5.1 mmol/L Chloride Level 107 98-107 mmol/L Carbon Dioxide Level 21 20-31 mmol/L Anion Gap 11 5-15 Blood Urea Nitrogen < 5 L 9-23 mg/dL Creatinine 0.63 0.550-1.02 mg/dL Glomerular Filtration Rate Calc 129 >90 mL/min BUN/Creatinine Ratio 7.9 L 10.0-20.0 Serum Glucose 106 74-106 mg/dL Calcium Level 8.6 L 8.7-10.4 mg/dL Total Bilirubin 0.2 0.2-1.0 mg/dL Aspartate Amino Transferase (AST) 17 13-40 U/L Alanine Aminotransferase (ALT) 10 7-40 U/L Alkaline Phosphatase 116 46-116 U/L Total Protein 6.4 5.7-8.2 g/dL Albumin 3.8 3.2-4.8 g/dL Treponema pallidum Antibody Non-reactive Negative Hepatitis B Surface Antigen Negative Negative Hepatitis C Antibody Negative Negative HIV (1&2) Antibody Negative Negative Rubella Antibody Pending Amniotic Fluid Ferning Test Positive Placental Utfyz-[id number]-Motywamqgarht Positive SARS-CoV-2 Antigen (Rapid) Positive NEGATIVE Test 06/26/25 14:19 Range/Units Urine Opiates Screen Neg NEGATIVE Urine Fentanyl Screen Neg NEGATIVE Urine Barbiturates Screen Neg NEGATIVE Urine Phencyclidine Screen Neg NEGATIVE Urine Amphetamines Screen Neg NEGATIVE Urine Benzodiazepines Screen Neg NEGATIVE Urine Cocaine Screen Neg NEGATIVE Urine Cannabinoids Screen Neg NEGATIVE Assessment Assessment IUPat 40w SROM Covid 19 Infection Impending IUGR Anemia Category 1 FHR Tracing Plan Plan Continue with current plan. Supportive care Plan discussed with: Patient, Spouse Visit Coding OBGYN Date of Service: Jun 27, 2025 Billing Provider: SRI RANGEL CNM ENGRAVER RUBBER Common Visit Codes: [id number] INP/OBS CARE(HIGH) ENGRAVER RUBBER Procedure Codes: 01413-45- NON-STRESS TEST SRI RANGEL CNM Jun 27, 2025 06:29
--- NOTE | 2025-06-27 06:48 | DVHPN2 ---
[facility] Labor Progress Note Date and Time Seen Date Seen: Jun 27, 2025 Time Seen: 06:00 Subjective Patient reports: Other (Feeling contractions ) Objective Vital Signs VSS Monitoring Method Monitoring Method: External Heart Rate Heart Rate Baseline: 135 Heart Rate Variability: Moderate Presence of FHR Accelerations: Yes Presence of FHR Decelerations: No Changes in Trends of Patterns: No Are all 5 Components of the FH: Yes Contractions Contractions Frequency: Other (Q2-5min) Duration of Contraction: 70 Contractions Intensity: Mild Contractions Resting Tone: Relaxed Membranes Membranes: Ruptured Amniotic Fluid Color: Clear Vaginal Exam Vag Exam Deferred: No Vaginal Exam Dilation: 2 Vaginal Exam Effacement: 70 Vaginal Exam Station: -3 Vaginal Exam Presentation: VTX Vaginal Exam Show: None Medications Medications - Pitocin: No Medication - Epidural: No Medication - Other Misoprostol Lab Results Lab Results Current Medications Medications (Trade) Dose Ordered Sig/Rosaline Start Time Stop Time Status Last Admin Dose Admin Lactated Ringer's 1,000 ml @ 125 mls/hr Q8H 06/26/25 14:30 06/27/25 02:41 125 MLS/HR Witannmarie Natalie (Tucks) 1 pad PRN PRN 06/26/25 14:30 06/26/25 16:23 1 PAD Sodium Lauryl Sulfate (Phisoderm) 240 ml PRN PRN 06/26/25 14:30 06/26/25 16:19 240 ML Benzocaine (Dermoplast) 1 applic PRN PRN 06/26/25 14:30 06/26/25 16:19 1 APPLIC Butorphanol Tartrate (Stadol Injection) 1 mg Q4HPRN PRN 06/26/25 14:30 Butorphanol Tartrate (Stadol Injection) 2 mg Q4HPRN PRN 06/26/25 14:30 Lidocaine HCl (Xylocaine) 20 ml ONCE PRN 06/26/25 14:30 Oxytocin 500 ml @ 999 mls/hr Q31M ONCE 06/26/25 14:30 06/26/25 15:52 DC Oxytocin 500 ml @ 125 mls/hr Q4H ONCE 06/26/25 15:00 06/26/25 18:59 DC Misoprostol (Cytotec) 50 mcg Q4HPRN PRN 06/26/25 15:45 06/27/25 02:41 50 MCG Clindamycin Phosphate 50 ml @ 50 mls/hr Q8HR 06/26/25 16:00 06/27/25 01:01 50 MLS/HR Laboratory Tests Test 06/26/25 15:00 06/26/25 14:50 06/26/25 14:45 06/26/25 14:24 Range/Units Urine Color Light-yellow Yellow Urine Clarity Turbid H Clear Urine pH 6.5 5.0-9.0 Urine Specific [place] 1.008 1.001-1.035 Urine Protein Negative Negative Urine Ketones Negative Negative Urine Blood Negative Negative /uL Urine Nitrite Negative Negative Urine Bilirubin Negative Negative Urine Urobilinogen Normal Negative mg/dL Urine Leukocyte Esterase Negative Negative /uL Urine RBC 1 0 - 4 /hpf Urine Microscopic WBC 1 0-5 /HPF Urine Squamous Epithelial Cells Mod <5 /hpf Urine Bacteria Few H None Seen /hpf Urine Glucose Normal Normal mg/dL White Blood Count 6.0 4.4-10.8 10^3/uL Red Blood Count 4.29 4.0-5.20 10^6/uL Hemoglobin 10.7 L 12.2-16.2 g/dL Hematocrit 31.5 L 36.0-46.0 % Mean Corpuscular Volume 73.4 L 80.0-100.0 fL Mean Corpuscular Hemoglobin 25.0 L 28.0-32.0 pg Mean Corpuscular Hemoglobin Concent 34.1 32.0-36.0 g/dL Red Cell Distribution Width 16.5 H 11.8-14.3 % Platelet Count 222 140-450 10^3/uL Mean Platelet Volume 9.1 6.9-10.8 fL Neutrophils (%) (Auto) 63.8 37.0-80.0 % Lymphocytes (%) (Auto) 23.8 10.0-50.0 % Monocytes (%) (Auto) 10.1 0.0-12.0 % Eosinophils (%) (Auto) 1.9 0.0-7.0 % Basophils (%) (Auto) 0.4 0.0-2.0 % Neutrophils # (Auto) 3.8 1.6-8.6 10 ^3/uL Lymphocytes # (Auto) 1.4 0.4-5.4 10 ^3/uL Monocytes # (Auto) 0.6 0-1.3 10 ^3/uL Eosinophils # (Auto) 0.1 0-0.8 10 ^3/uL Basophils # (Auto) 0 0-0.2 10 ^3/uL Nucleated Red Blood Cells 0.1 % Prothrombin Time 9.6 9.3-11.8 sec Prothrombin Time INR 0.90 0.9-1.15 Activated Partial Thromboplast Time 29.8 24.5-34.5 SEC Sodium Level 139 136-145 mmol/L Potassium Level 3.4 L 3.5-5.1 mmol/L Chloride Level 107 98-107 mmol/L Carbon Dioxide Level 21 20-31 mmol/L Anion Gap 11 5-15 Blood Urea Nitrogen < 5 L 9-23 mg/dL Creatinine 0.63 0.550-1.02 mg/dL Glomerular Filtration Rate Calc 129 >90 mL/min BUN/Creatinine Ratio 7.9 L 10.0-20.0 Serum Glucose 106 74-106 mg/dL Calcium Level 8.6 L 8.7-10.4 mg/dL Total Bilirubin 0.2 0.2-1.0 mg/dL Aspartate Amino Transferase (AST) 17 13-40 U/L Alanine Aminotransferase (ALT) 10 7-40 U/L Alkaline Phosphatase 116 46-116 U/L Total Protein 6.4 5.7-8.2 g/dL Albumin 3.8 3.2-4.8 g/dL Treponema pallidum Antibody Non-reactive Negative Hepatitis B Surface Antigen Negative Negative Hepatitis C Antibody Negative Negative HIV (1&2) Antibody Negative Negative Rubella Antibody Pending Amniotic Fluid Ferning Test Positive Placental Ccgzu-7-Sdcwczeolisdf Positive SARS-CoV-2 Antigen (Rapid) Positive NEGATIVE Test 06/26/25 14:19 Range/Units Urine Opiates Screen Neg NEGATIVE Urine Fentanyl Screen Neg NEGATIVE Urine Barbiturates Screen Neg NEGATIVE Urine Phencyclidine Screen Neg NEGATIVE Urine Amphetamines Screen Neg NEGATIVE Urine Benzodiazepines Screen Neg NEGATIVE Urine Cocaine Screen Neg NEGATIVE Urine Cannabinoids Screen Neg NEGATIVE Assessment Assessment IUP at 40w SROM Covid 19 Infection Impending IUGR Anemia Category 1 FHR Tracing Plan Plan Labor analgesia - IV Intrauterine resuscitation PRN EFM per policy / protocol Re-assess in few hours Plan discussed with: Patient, Spouse Visit Coding OBGYN Date of Service: Jun 27, 2025 Billing Provider: SRI RANGEL CNM BUS ESCORT Common Visit Codes: [id number] INP/OBS CARE(HIGH) BUS ESCORT Procedure Codes: 66995-11- NON-STRESS TEST SRI RANGEL CNM Jun 27, 2025 06:47
--- NOTE | 2025-06-27 07:17 | DVHPN2 ---
Chief Complaints Patient reports: No new complaints, Other (Feeling contractions ) Nursing reports: No new complaints Objective Medications Current Medications Medications (Trade) Dose Ordered Sig/Rosaline Route PRN Reason Start Time Stop Time Status Last Admin Benzocaine (Dermoplast) 1 applic PRN PRN TOP PERINEAL AREA DISCOMFORT 06/26/25 14:30 06/26/25 16:19 Butorphanol Tartrate (Stadol Injection) 1 mg Q4HPRN PRN IV MODERATE PAIN (4-6 PAIN SCALE) 06/26/25 14:30 Butorphanol Tartrate (Stadol Injection) 2 mg Q4HPRN PRN IV SEVERE PAIN (7-10 PAIN SCALE) 06/26/25 14:30 Clindamycin Phosphate 50 ml @ 50 mls/hr Q8HR IV 06/26/25 16:00 06/27/25 01:01 Lactated Ringer's 1,000 ml @ 125 mls/hr Q8H IV 06/26/25 14:30 06/27/25 02:41 Lidocaine HCl (Xylocaine) 20 ml ONCE PRN IJ PERINEAL AREA DISCOMFORT 06/26/25 14:30 Misoprostol (Cytotec) 50 mcg Q4HPRN PRN PO CERVICAL RIPENING 06/26/25 15:45 06/27/25 02:41 Sodium Lauryl Sulfate (Phisoderm) 240 ml PRN PRN TOP PERINEAL AREA DISCOMFORT 06/26/25 14:30 06/26/25 16:19 Witch Natalie (Tucks) 1 pad PRN PRN TOP PERINEAL AREA DISCOMFORT 06/26/25 14:30 06/26/25 16:23 Others ve-1.5cm Studies Laboratory Tests 06/26/25 14:50 Test 06/26/25 14:50 Range/Units Serum Glucose 106 74-106 mg/dL Ass/Plan Assessment iup at 39wks with srom on admission oligo covid positive evolving iugr Plan rec 3 cytotec rec epidural cont with supportive care Visit Coding OBGYN Date of Service: Jun 27, 2025 Billing Provider: ROSE RIVAS DO DATA COMMUNICATIONS ANALYST Common Visit Codes: [id number] INP/OBS CARE (HIGH) DATA COMMUNICATIONS ANALYST Procedure Codes: 30944-62- NON-STRESS TEST ROSE RIVAS DO Jun 27, 2025 07:17
[2025-06-27] MEDS ORDERED: TERBUTALINE SULFATE 1 MG/ML 1ML VIAL SC PRN (08:30)
[2025-06-27] MEDS: ONDANSETRON HCL 4 MG/2 ML VIAL IV PRN (11:04)
[2025-06-27] MEDS: LACTATED RINGER'S 1,000 ML IV ONE (11:04)
--- NOTE | 2025-06-27 11:55 | DVHPN2 ---
Chief Complaints Patient reports: No new complaints, Other (Feeling contractions ) Nursing reports: No new complaints Objective Medications Current Medications Medications (Trade) Dose Ordered Sig/Rosaline Route PRN Reason Start Time Stop Time Status Last Admin Benzocaine (Dermoplast) 1 applic PRN PRN TOP PERINEAL AREA DISCOMFORT 06/26/25 14:30 06/26/25 16:19 Butorphanol Tartrate (Stadol Injection) 1 mg Q4HPRN PRN IV MODERATE PAIN (4-6 PAIN SCALE) 06/26/25 14:30 Butorphanol Tartrate (Stadol Injection) 2 mg Q4HPRN PRN IV SEVERE PAIN (7-10 PAIN SCALE) 06/26/25 14:30 Clindamycin Phosphate 50 ml @ 50 mls/hr Q8HR IV 06/26/25 16:00 06/27/25 09:18 Lactated Ringer's 1,000 ml @ 125 mls/hr Q8H IV 06/26/25 14:30 06/27/25 11:05 Lidocaine HCl (Xylocaine) 20 ml ONCE PRN IJ PERINEAL AREA DISCOMFORT 06/26/25 14:30 Misoprostol (Cytotec) 50 mcg Q4HPRN PRN PO CERVICAL RIPENING 06/26/25 15:45 06/27/25 02:41 Ondansetron HCl (Zofran) 4 mg Q4HPRN PRN IV NAUSEA / VOMITING 06/27/25 10:45 06/27/25 11:04 Oxytocin 1,000 ml @ 6 ml/hr Q24H IV 06/27/25 08:30 Sodium Lauryl Sulfate (Phisoderm) 240 ml PRN PRN TOP PERINEAL AREA DISCOMFORT 06/26/25 14:30 06/26/25 16:19 Terbutaline Sulfate (Brethine Inj) 0.25 mg ONCE PRN SC Uterine tachysystole 06/27/25 08:30 Witch Natalie (Tucks) 1 pad PRN PRN TOP PERINEAL AREA DISCOMFORT 06/26/25 14:30 06/26/25 16:23 Others ve- 3cm/80/0 Studies Laboratory Tests 06/26/25 14:50 Test 06/26/25 14:50 Range/Units Serum Glucose 106 74-106 mg/dL Ass/Plan Assessment iup at 39wks with srom on admission oligo covid positive evolving iugr Plan start pitocin Visit Coding OBGYN Date of Service: Jun 27, 2025 Billing Provider: ROSE RIVAS DO RAILROAD OPERATOR Common Visit Codes: [id number] INP/OBS CARE(HIGH) RAILROAD OPERATOR Procedure Codes: 19816-40- NON-STRESS TEST ROSE RIVAS DO Jun 27, 2025 11:55
[2025-06-27] MEDS: ROPIVACAINE HCL 100 ML ONE ×2 (14:21→14:23)
[2025-06-27] MEDS: METHYLERGONOVINE MALEATE 0.2 MG/ML AMP IM ONE (22:31)
[2025-06-28] MEDS: METHYLERGONOVINE MALEATE 0.2 MG/ML AMP IM ONE (00:12)
[2025-06-28] MEDS: LACT. RINGERS/OXYTOCIN 20UNITS 1,000 ML IV SCH (00:33)
[2025-06-28] MEDS: LACT. RINGERS/OXYTOCIN 20UNITS 500 ML IV ONE ×2 (00:34→00:49)
[2025-06-28] MEDS: IBUPROFEN 600 MG TAB PO PRN (01:08)
[2025-06-28 03:00] VITALS: BP 108/58; PULSE 94; RESP 16; TEMP 98.5; O2SAT 97
[2025-06-28] MEDS: ACETAMINOPHEN 325 MG TAB PO PRN (04:52)
--- NOTE | 2025-06-28 06:07 | LDN2 ---
Labor and Delivery Note Date 06/28/25 Age 20 1 Para 0 AB 0 EDC 06/28/2025 EGA 39 6/7th weeks Diagnosis labor Vaginal Delivery: VTX Vacuum Assisted: Yes Placenta: Spontaneous Sex: Male Weight 6lbs 11 ounces Apgars 8/9 Nuchal Cord Transected: No Amniotic Fluid: Clear Anesthesia Epidural Episiotomy: No Extension: Yes (2nd Degree posterior) Repaired with 2-0 Chromic EBL 400cc Labs Laboratory Tests 06/26/25 14:50: Hepatitis B Surface Antigen Negative, HIV (1&2) Antibody Negative, Rubella Antibody Positive Blood Bank 06/26/25 14:50: Blood Type B POSITIVE Complications mild post hemorrhage .... Patient was given Pitocin massage trailing membranes were removed and Methergine given she responded well total EBL 400 cc. Conditions stable guarded Expediter Service Order none needed or present Comments/Significant Med Jeison none Visit Coding OBGYN Date of Service: Jun 28, 2025 Billing Provider: LUIGI NOYOLA DO AWNING HANGER SUPERVISOR Common Visit Codes: [id number] INP/OBS CARE (HIGH) AWNING HANGER SUPERVISOR Procedure Codes: [id number] DEL INCLUDING LUIGI NOYOLA DO Jun 28, 2025 06:07
[2025-06-28 07:00] VITALS: BP 109/66; PULSE 86; RESP 18; TEMP 97.7; O2SAT 98
[2025-06-28 10:40] VITALS: BP 111/68; PULSE 85; RESP 20; TEMP 97.7; O2SAT 99
[2025-06-28 15:00] VITALS: BP 95/61; PULSE 79; RESP 20; TEMP 97.8; O2SAT 98
[2025-06-28 18:30] VITALS: BP 104/62; PULSE 78; RESP 18; TEMP 98.1; O2SAT 99
[2025-06-28] MEDS ORDERED: PREN-96 PO ×2 (19:41)
[2025-06-28] MEDS ORDERED: DOCU-265 PO ×2 (19:41)
[2025-06-28] MEDS ORDERED: FERR30CA PO ×2 (19:41)
[2025-06-28] MEDS ORDERED: IBU600T PO ×2 (19:41)
[2025-06-28 20:28] LABS: Nucleated Red Blood Cells % 0.0 %
[2025-06-28 20:29] LABS: Hematocrit 25.7 % (36.0-46.0); Hemoglobin 8.7 g/dL (12.2-16.2); Mean Corpuscular Hemoglobin 24.7 pg (28.0-32.0); Mean Corpuscular Volume 72.6 fL (80.0-100.0)
[2025-06-28] MEDS: DOCUSATE SOD 100 MG CAP PO SCH (22:00)
[2025-06-28 23:15] VITALS: BP 110/69; PULSE 70; RESP 18; TEMP 98.1; O2SAT 99
--- NOTE | 2025-06-29 02:28 | DVHPN2 ---
Progress Note Date Seen: Jun 29, 2025 Subjective S bleeding is less, eating food without issues, denies lightheaded/dizziness, pain well controlled with oral medications, no concerns with urinating, passing flatus, no BM yet, ambulating well, and formula vital signs Vital Sign Date Time Temp Pulse Resp B/P (MAP) Pulse Ox O2 Delivery O2 Flow Rate FiO2 06/28/25 23:15 98.1 70 18 110/69 (83) 99 98.1 06/28/25 18:30 Room Air medications Current Medications Medications Dose Ordered Sig/Rosaline Route Start Time Stop Time Status Last Admin Dose Admin Jovan Patriciael 1 pad PRN PRN TOP 06/26/25 14:30 06/26/25 16:23 1 PAD Sodium Lauryl Sulfate 240 ml PRN PRN TOP 06/26/25 14:30 06/26/25 16:19 240 ML Benzocaine 1 applic PRN PRN TOP 06/26/25 14:30 06/26/25 16:19 1 APPLIC Butorphanol Tartrate 1 mg Q4HPRN PRN IV 06/26/25 14:30 Cancel Butorphanol Tartrate 2 mg Q4HPRN PRN IV 06/26/25 14:30 Cancel Lidocaine HCl 20 ml ONCE PRN IJ 06/26/25 14:30 Cancel Terbutaline Sulfate 0.25 mg ONCE PRN SC 06/27/25 08:30 Cancel Ondansetron HCl 4 mg Q4HPRN PRN IV 06/27/25 10:45 06/27/25 11:04 4 MG Ibuprofen 600 mg Q6HP PRN PO 06/28/25 00:15 06/28/25 19:39 600 MG Acetaminophen 650 mg Q4HP PRN PO 06/28/25 00:15 06/29/25 02:06 650 MG Docusate Sodium 200 mg HS PO 06/28/25 22:00 laboratory and microbiology Laboratory Tests 06/28/25 20:09 06/26/25 14:50 Test 06/26/25 14:50 Range/Units Serum Glucose 106 74-106 mg/dL Objective O VSS Chest: heart sounds normal and lung sounds clear bilaterally Abd: soft, non-tender, fundus at U/firm/midline, active bowel sounds, no rebound or guarding Perineum: sutures intact, edges well approximated, no erythema/edema noted Ext: Non-tender, No edema, 2+ BLE DTRs Lochia: minimal See lab results Problems(with codes): (1) Second degree perineal laceration during delivery (2) Vacuum-assisted vaginal delivery (3) Iron deficiency anemia of mother during (4) COVID (5) Precipitous drop in hematocrit Assessment/Plan A: 20yo now PPD#1 s/p VAVD Anemia Rh+ Rubella Immune and formula P: D/C home today Rx sent to pharmacy precautions and preeclampsia warning signs reviewed F/U with [facility] office in 2 weeks Plan discussed with: Patient, Spouse Visit Coding OBGYN Date of Service: Jun 29, 2025 Billing Provider: AB GAMING CNM SAW FILER Common Visit Codes: [id number] INP/OBS CARE(HIGH) AB GAMING CNM Jun 29, 2025 02:28
--- NOTE | 2025-06-29 02:29 | DVHDS2 ---
Obstetrics Discharge Summary Obstetrics Discharge Summary Date of Admission: Jun 26, 2025 Date of Discharge: Jun 29, 2025 Reason For Admission: Induction of Labor Procedures: NST, Ultrasound Intrapartum Procedures: Vacuum Extraction Procedures: Hct/date: (06/28/2025), Hgb/date: (06/28/2025) Operative Complicat: Laceration (2nd degree Perineal) Discharge Diagnosis: Term -Delivered, Others (Covid+) Discharge Information: Activity (as tolerated, no heavy lifting and nothing in the vagina for 6 weeks), Diet (Routine), Medications (Rx sent), Instructions (Routine), Discharge to (Home), Accompanied by (Partner), Discarge date (06/04) Visit Coding OBGYN Date of Service: Jun 29, 2025 Billing Provider: AB GAMING CNM ENGRAVER SET UP OPERATOR Common Visit Codes: [id number]-FZL/OBS DISCH DAY <30MIN AB GAMING CNM Jun 29, 2025 02:29
[2025-06-29 03:05] VITALS: BP 105/63; PULSE 71; RESP 16; TEMP 98.1; O2SAT 99
--- NOTE | 2025-06-29 04:14 | DVHINCON2 ---
Date of Service if different f: Jun 29, 2025 Time of Service: 03:59 Consult Consult Note PSYCHIATRY L&D NEW CONSULT HPI: 20 yo F pt with no PPH seen today as pt scored 11 on depression scale. Psychiatry consulted for safety evaluation and recommendations in context of current presentation Per pt, reports this is her first and just gave to a healthy baby boy via uncomplicated vaginal delivery. Pt reports feeling tired, nervous/anxious s/p delivery/labor which may have caused mild elevation on scoring on PPDS. Pt is not experiencing any current feelings of depression or feelings to harm self, others, or baby. Over the duration of her , pt denied having any feelings of depression or persistent sadness. Pt excited about her and looks forward to bonding with him once discharged from hospital. Pt denies depressed/sad mood, hopelessness, helplessness, loss of interest, decreased energy, poor sleep/appetite, excessive guilt, anhedonia, or amotivation. Also denies panic/anxiety symptoms, irritability/restlessness, raul, or psychosis. denies hx of manic, psychotic, or major depressive episodes Pt currently does not have psychiatrist/therapist out in community. Never sought MH services in past. Currently not on any psychotropic agents. No prior psych med trials. Denies any ETOH, THC or IDU. Never , lives with family/partner (baby radames), some support system noted Unknown trauma hx. Unknown FH. No acute medical issues, NKDA Does not have hx of suicide attempts, SIB, or prior psych hospitalizations. Currently denies SI/HI. Denies history of violence, unprovoked aggression, impulsivity, emotional dysregulation, or assaultive behaviors. Does not have access to firearms. Identifies self/family as PPF. No safety concerns noted during encounter. MSE: General Appearance/Behavior: Alert and awake; appears stated age, overweight, fair grooming and hygiene; calm and cooperative, fair eye contact, no PMA/PMR, appears a bit tired Speech: coherent, rrr Thought Process: linear, logical, and goal-directed Thought Content: Abnormal Thoughts and Perceptions: None Homicidality / Violent Thoughts: None Suicidality: none Hallucinations: None Delusions: denies paranoia, persecutory, or grandiose delusions Obsessions /compulsions : None Judgment and Insight: fair judgment with fair insight Mood & Affect: "good, little tired" with mood-congruent, appropriate Orientation: oriented to person, place, time Attention/Concentration: intact, follows conversation Memory: grossly intact Language: no unusual or inappropriate language Fund of Knowledge: appropriate Assessment: 20 yo F pt with no PPH seen today as pt scored 11 on depression scale Reports feeling tired, nervous/anxious s/p delivery/labor which may have caused mild elevation on scoring on PPDS. Nonetheless pt current denies SI/HI/AVH. Linear and goal directed in thought. Denies s/s of major depression, raul or psychosis Presently, pt does not show any signs of immediate danger to self or others that would warrant a higher level of care. Thus, pt does not meet criteria for 5150 or inpatient psych admission as is not DTS, DTO or GD Plan: Does not warrant inpatient psychiatric hospitalization or 5150 hold at this time No acute safety concerns Pt can be safely discharged back to current residence Does not warrant psychotropic med initiation at this time Supportive tx provided Education provided re: normal maternity blues vs post depression/psychosis Pt verbalized understanding and is receptive to above tx plan This case was discussed with L&D nurse/provider and all parties in agreement with above tx plan Maurice Power MD Plan discussed with: Patient MAURICE POWER MD Jun 29, 2025 04:14
[2025-06-29 07:00] VITALS: BP 106/66; PULSE 91; RESP 16; TEMP 98; O2SAT 98
[2025-06-29 11:20] VITALS: BP 127/67; PULSE 88; RESP 16; TEMP 97.8; O2SAT 100
== END 2025-06-29 12:34 | disposition home or self-care (01) | DRG 560 ==
LOC: LDRP 14:06 → OBSVTOIN 14:06 → LDRP 14:07
PROVIDERS: ADMIT Obstetrics & Gynecology; ATTEND Obstetrics & Gynecology
PROC: 10D07Z6 Extraction of Products of Conception, Vacuum, Via Natural or Artificial Opening (ICD-10-PCS; principal; 2025-06-27)
PROC: 0KQM0ZZ Repair Perineum Muscle, Open Approach (ICD-10-PCS; 2025-06-27)
PROC: 3E0R3BZ Introduction of Anesthetic Agent into Spinal Canal, Percutaneous Approach (ICD-10-PCS; 2025-06-27)
PROC: 00HU33Z Insertion of Infusion Device into Spinal Canal, Percutaneous Approach (ICD-10-PCS; 2025-06-27)
DX: O36.5930 Maternal care for other known or suspected poor fetal growth, third trimester, not applicable or unspecified (principal); Z37.0 Single live birth; U07.1 COVID-19; O41.1230 Chorioamnionitis, third trimester, not applicable or unspecified; O70.1 Second degree perineal laceration during delivery; O99.52 Diseases of the respiratory system complicating childbirth; O90.81 Anemia of the puerperium; O98.513 Other viral diseases complicating pregnancy, third trimester; J06.9 Acute upper respiratory infection, unspecified; Z3A.39 39 weeks gestation of pregnancy; O42.02 Full-term premature rupture of membranes, onset of labor within 24 hours of rupture; O72.1 Other immediate postpartum hemorrhage
CPT/HCPCS: 36415; 59025; 59409; 62282; 76815; 80053; 80307; 81001; 84112; 85025; 85610; 85730; 86703; 86762; 86780; 86803; 86850; 86900; 86901; 87340; 87426; 94760; 94762; 96360; 96361; 96365; 96366; 96372; G0378; J2405; J2590; J3490